=== PATIENT | female | born 1925 | race Caucasian/White ===

== ENCOUNTER 2016-08-19 09:44 | Observation (INO) | payer MEDICARE, BC ==
[~2016-08-19] VITALS: Ht 167.6 cm; Wt 66.2 kg
[~2016-08-19 09:44] MED LIST: CELEBREX200 MG PO; FLONASE NASAL50 MCG; FLUARIX QUADRIV1 IN1 IM; FLUARIX QUADRIV1 INJ IM; FLULAVAL IM; IBUPROFEN800 MG PO; LEVOTHYROXIN50 MC1 PO; MEDDOSEPAK PO; MEDROL4 M1 PO; METOPROL TAR50 MG PO; METOPROLOL TART50 MG PO; MOTRIN400 MG/TAB PO; MOTRIN800 MG/TAB PO; PRILOSEC20 MG PO; PRILOSEC20 MG/CAP PO; ZPAK PO
[2016-08-19 11:41] LABS: HEMATOCRIT 39.1 % (37.0-47.0); HEMOGLOBIN 12.8 g/dl (12.0-16.0); MEAN CELL VOLUME 89.5 fL CALC (80.0-100.0); MEAN CORPUSCULAR HGB 29.3 pG CALC (26.0-32.0); MEAN CORPUSCULAR HGB CONC 32.7 g/L CALC (32.0-36.0); NEUT# 5.08 thou/uL (2.00-7.15); RED BLOOD COUNT 4.37 mill/uL (4.20-5.60); RED CELL DISTRI WIDTH 14.4 % (11.5-15.5)
[2016-08-19 11:43] LABS: URINE BILIRUBIN - DIPSTICK NEGATIVE (NEGATIVE); URINE BLOOD DIPSTICK TRACE-INTACT (NEGATIVE); URINE CLARITY CLEAR; URINE COLOR YELLOW; URINE GLUCOSE - DIPSTICK NEGATIVE (NEGATIVE); URINE KETONE NEGATIVE (NEGATIVE); URINE LEUK ESTERASE NEGATIVE (NEGATIVE); URINE NITRITE - DIPSTICK NEGATIVE (Negative); URINE PROTEIN - DIPSTICK NEGATIVE (NEG-TRACE); URINE SPECIFIC GRAVITY <=1.005; URINE UROBILINOGEN - DIPSTICK 0.2 E.U./dL (0.2)
[2016-08-19 12:04] LABS: ALBUMIN 3.5 g/dL (3.2-5.0); ALKALINE PHOSPHATASE 71 u/l (38-126); ANION GAP 13 (6-22 (CALC)); BILIRUBIN, TOTAL 0.7 mg/dL (0.0-1.4); BUN 15 mg/dL (8-23); BUN/CREATININE RATIO 16 (12-20 (CALC)); CALCIUM 9.2 mg/dL (8.4-10.2); CARBON DIOXIDE 28 mmol/l (22-30); CHLORIDE 100 mmol/l (95-108); CREATININE 0.9 mg/dL (0.5-1.0); GFR 59 ML/MIN (>=60 (CALC)); GFR FOR AFR.AMER. > 60 ML/MIN (>=60 (CALC)); GLUCOSE 98 mg/dL (82-115); SGOT/AST 24 u/l (9-36); SGPT/ALT 33 u/l (11-66); SODIUM 137 mmol/l (137-146); TOTAL PROTEIN 6.3 g/dL (6.3-8.2)
[2016-08-19 15:53] VITALS: BP 115/55
[2016-08-19 20:00] VITALS: BP 121/62
[2016-08-20] VITALS: BP 133/59
[2016-08-20 04:00] VITALS: BP 127/63
[2016-08-20 04:54] VITALS: BP 106/61
[2016-08-20 06:41] LABS: HEMATOCRIT 38.4 % (37.0-47.0); HEMOGLOBIN 12.7 g/dl (12.0-16.0); IMMATURE GRANULOCYTES 1.1 % (0.0-1.0); MEAN CELL VOLUME 89.7 fL CALC (80.0-100.0); MEAN CORPUSCULAR HGB 29.7 pG CALC (26.0-32.0); MEAN CORPUSCULAR HGB CONC 33.1 g/L CALC (32.0-36.0); NEUT# 5.99 thou/uL (2.00-7.15); RED BLOOD COUNT 4.28 mill/uL (4.20-5.60); RED CELL DISTRI WIDTH 14.5 % (11.5-15.5)
[2016-08-20 07:09] LABS: ALBUMIN 3.4 g/dL (3.2-5.0); ALKALINE PHOSPHATASE 72 u/l (38-126); ANION GAP 13 (6-22 (CALC)); BILIRUBIN, TOTAL 0.7 mg/dL (0.0-1.4); BUN 10 mg/dL (8-23); BUN/CREATININE RATIO 12 (12-20 (CALC)); CALCIUM 8.9 mg/dL (8.4-10.2); CALCULATED LDLCHOLESTEROL 123 mg/dL (62-129 (CALC)); CARBON DIOXIDE 25 mmol/l (22-30); CHLORIDE 107 mmol/l (95-108); CHOLESTEROL HDL RATIO 4.1 (<4.4 (CALC)); CREATININE 0.9 mg/dL (0.5-1.0); GFR 59 ML/MIN (>=60 (CALC)); GFR FOR AFR.AMER. > 60 ML/MIN (>=60 (CALC)); GLUCOSE 89 mg/dL (82-115); HDL CHOLESTEROL 48 mg/dL (>=40); POTASSIUM 3.7 mmol/l (3.5-5.1); SGOT/AST 22 u/l (9-36); SGPT/ALT 27 u/l (11-66); SODIUM 142 mmol/l (137-146); TOTAL CHOLESTEROL 197 mg/dl (0-199); TOTAL PROTEIN 6.2 g/dL (6.3-8.2); TOTAL TRIGLYCERIDES 126 mg/dl (30-149); VLDL CHOLESTROL 25 mg/dl (0-48 (CALC))
[2016-08-20 07:35] VITALS: BP 112/50
[2016-08-20 10:37] VITALS: BP 128/70
== END 2016-08-20 13:25 | disposition home or self-care (01) ==
LOC: ENPENDDIS → ED 09:44 → ED-I 10:33 → ED 10:33 → ED-I 12:51 → ED 13:22 → ICU 13:23 → MS2 08-20 04:55
PROVIDERS: Emergency Medicine; ADMIT Internal Medicine Geriatric Medicine; ATTEND Internal Medicine Geriatric Medicine
DX: R50.9 Fever, unspecified (principal); R10.30 Lower abdominal pain, unspecified; M62.830 Muscle spasm of back; R32 Unspecified urinary incontinence; I10 Essential (primary) hypertension; E78.5 Hyperlipidemia, unspecified; K21.9 Gastro-esophageal reflux disease without esophagitis; E03.9 Hypothyroidism, unspecified; I25.10 Atherosclerotic heart disease of native coronary artery without angina pectoris; M19.90 Unspecified osteoarthritis, unspecified site; M85.80 Other specified disorders of bone density and structure, unspecified site; Z85.038 Personal history of other malignant neoplasm of large intestine; Z90.49 Acquired absence of other specified parts of digestive tract; Z93.3 Colostomy status
CPT/HCPCS: J1956; S0164

== ENCOUNTER 2016-11-21 15:59 | Emergency (ER) | payer MEDICARE, BC ==
[~2016-11-21] VITALS: Ht 167.6 cm; Wt 65.4 kg
[2016-11-21 17:06] LABS: HEMATOCRIT 40.7 % (37.0-47.0); HEMOGLOBIN 13.1 g/dl (12.0-16.0); IMMATURE GRANULOCYTES 0.3 % (0.0-1.0); MEAN CELL VOLUME 91.1 fL CALC (80.0-100.0); MEAN CORPUSCULAR HGB 29.3 pG CALC (26.0-32.0); MEAN CORPUSCULAR HGB CONC 32.2 g/L CALC (32.0-36.0); NEUT# 2.62 thou/uL (2.00-7.15); RED BLOOD COUNT 4.47 mill/uL (4.20-5.60); RED CELL DISTRI WIDTH 13.5 % (11.5-15.5)
[2016-11-21 17:07] LABS: URINE BILIRUBIN - DIPSTICK NEGATIVE (NEGATIVE); URINE BLOOD DIPSTICK SMALL (NEGATIVE); URINE CLARITY CLEAR; URINE COLOR YELLOW; URINE GLUCOSE - DIPSTICK NEGATIVE (NEGATIVE); URINE KETONE NEGATIVE (NEGATIVE); URINE LEUK ESTERASE TRACE (NEGATIVE); URINE NITRITE - DIPSTICK NEGATIVE (Negative); URINE PH 5.5 (4.5-8.0); URINE PROTEIN - DIPSTICK TRACE mg/dL (NEG-TRACE); URINE UROBILINOGEN - DIPSTICK 0.2 E.U./dL (0.2)
[2016-11-21 17:12] LABS: URINE SQUAMOUS EPITHELIAL CELL FEW EPI/hpf (0-FEW)
[2016-11-21 17:23] LABS: ALKALINE PHOSPHATASE 68 u/l (38-126); AMYLASE 84 u/l (30-110); ANION GAP 13 (6-22 (CALC)); BILIRUBIN, TOTAL 0.5 mg/dL (0.0-1.4); BUN 11 mg/dL (8-23); BUN/CREATININE RATIO 12 (12-20 (CALC)); CALCIUM 9.5 mg/dL (8.4-10.2); CARBON DIOXIDE 29 mmol/l (22-30); CHLORIDE 106 mmol/l (95-108); CREATININE 0.9 mg/dL (0.5-1.0); GFR 59 ML/MIN (>=60 (CALC)); GFR FOR AFR.AMER. > 60 ML/MIN (>=60 (CALC)); GLUCOSE 103 mg/dL (82-115); LIPASE 108 u/l (23-300); POTASSIUM 3.6 mmol/l (3.5-5.1); SGOT/AST 22 u/l (9-36); SGPT/ALT 27 u/l (11-66); SODIUM 143 mmol/l (137-146); TOTAL PROTEIN 7.3 g/dL (6.3-8.2)
[2016-11-21 17:32] LABS: MYOGLOBIN 47 ng/mL (0 - 62)
[2016-11-21] MEDS ORDERED: METRONIDAZOL500 MG PO (19:00)
[2016-11-21] MEDS ORDERED: LEVAQUIN750 MG PO (19:00)
[2016-11-21 19:30] VITALS: BP 135/65
== END 2016-11-21 19:30 | disposition home or self-care (01) ==
LOC: ED 15:59
PROVIDERS: Emergency Medicine
DX: K57.32 Diverticulitis of large intestine without perforation or abscess without bleeding (principal); I10 Essential (primary) hypertension; K21.9 Gastro-esophageal reflux disease without esophagitis; Z93.3 Colostomy status; R94.31 Abnormal electrocardiogram [ECG] [EKG]